=== PATIENT | female | born 1950 | race Caucasian/White ===

== ENCOUNTER 2020-02-23 18:21 | Emergency (ER) | payer OTHER, BC ==
[2020-02-23 18:33] VITALS: TEMP 97; BMI 32.5
--- NOTE | 2020-02-23 19:11 | PDOC ---
History of Present Illness - General Chief Complaint: Injury Stated Complaint: FALL/L/SIDE FACE INJURY/L/HAND/INJURY Time Seen by Provider: 02/23/20 18:31 - History of Present Illness Initial Comments: 02/23/20 18:58 69F with PMH/PSH of thyroid cancer s/p thyroidectomy on levothyroxine, asthma, Covid-19 in October, kidney stones, myomectomy, rhinoplasty presents to the ED concerned about head trauma after a fall. She states she tripped on a curb, braced her fall with her left wrist, and hit the front of her head on the concrete. She denies LOC, amnesia, vomitting, but states she felt "stunned" and now feels a bit nauseous. She is concerned she has a concussion and wants to know if she can sleep tonight. She also complains of pain on the front of her face under her left eye, as well as left wrist pain and swelling. She states she has a fall one year prior and had soft tissue injuries to her left wrist and knee. PMH/PSH: as above Meds/Allergies: see below ROS GENERAL/CONSTITUTIONAL: No fever or chills. No weakness. HEAD, EYES, EARS, NOSE AND THROAT: No change in vision. No ear pain or discharge. No sore throat. CARDIOVASCULAR: No chest pain or shortness of breath RESPIRATORY: No cough, wheezing, or hemoptysis. GASTROINTESTINAL: nausea. No vomiting, diarrhea or constipation. GENITOURINARY: No dysuria, frequency, or change in urination. MUSCULOSKELETAL: left wrist pain. no myalgias SKIN: sunburn on shoulders and upper extremities NEUROLOGIC: No headache, vertigo, loss of consciousness, or change in strength/sensation. ENDOCRINE: No increased thirst. No abnormal weight change HEMATOLOGIC/LYMPHATIC: No anemia, easy bleeding, or history of blood clots. ALLERGIC/IMMUNOLOGIC: No hives or skin allergy. PE GENERAL: Awake, alert, and fully oriented, in no acute distress HEAD: contusion on left maxillary process / left inferior orbit without crepitus or step-off. EYES: PERRLA, EOMI, sclera anicteric, conjunctiva clear ENT: Auricles normal inspection, hearing grossly normal, nares patent, oropharynx clear without exudates. Moist mucosa NECK: midline tenderness on c-spine LUNGS: No distress, speaks full sentences, clear to auscultation bilaterally HEART: Regular rate and rhythm, normal S1 and S2, no murmurs, rubs or gallops, peripheral pulses normal and equal bilaterally. ABDOMEN: Soft, nontender, normoactive bowel sounds. No guarding, no rebound. No masses EXTREMITIES : left wrist swelling, tender to palpation, limited active and passive range of motion, and reduced strength. Other extremities normal inspection, normal range of motion, no edema. No clubbing or cyanosis. NEUROLOGICAL: Cranial nerves II through XII grossly intact. Normal speech, no focal sensorimotor deficits SKIN: Warm, Dry, normal turgor, sunburn on shoulders and upper extremities Vital Signs Temp Pulse Resp BP Pulse Ox 97 F L 79 18 162/72 97 02/23/20 18:23 02/23/20 18:23 02/23/20 18:23 02/23/20 18:23 02/23/20 18:23 69F presenting after a fall complaining of left face and wrist pain. Physical exam notable for and also found to be tender on c-spine. Differntial includes cervical spine fracture, cranial bleed, facial bone fracture, left wrist fracture. -CT head, c-spine, and facial bones -plain films of left wrist and forearm -ice and brace on left wrist 02/23/20 19:19 Consulted tyrone, who read the left wrist plain films as showing an intra- articular radial styloid fracture and arthiritic changes of the trapezium. He recommended a volar or sugar tong splint. Will apply a sugar tong splint and sling. Patient states she has outside orthopedist who she will follow up with. 02/23/20 19:23 CT head: There is cerebral atrophy. 2 mm calcification versus colloid cyst at the anterior superior margin of the third ventricle. Very mild chronic microvascular ischemic changes are suggested. No acute intracranial hemorrhage or acute infarction. CT face: No acute maxillofacial fracture. No acute intraorbital injury. Mild bilateral maxillary, ethmoid, and sphenoid chronic sinus changes. CT cervical spine: Slight anterior subluxations at C4-C5 and C7-T1, likely due to degenerative changes.No acute cervical spine fracture or dislocation. 02/23/20 20:51 left wrist plain films official read by radiology cardiopulmonary specialist: Minimally displaced intra-articular fracture of distal radius. No obvious carpal bone fracture. Moderate degenerative changes in the lateral wrist. Sugar tong splint applied to the left wrist and patient discharged home with instructions to see her outside orthopedist tomorrow. Past History - Medical History Allergies/Adverse Reactions: Allergies Allergy/AdvReac Type Severity Reaction Status Date / Time ciprofloxacin [From Cipro] Allergy Verified 02/23/20 18:29 egg Allergy Verified 02/23/20 18:29 Penicillins Allergy Verified 02/23/20 18:29 shellfish derived Allergy Verified 02/23/20 18:29 Home Medications: Ambulatory Orders Bupropion HCl [Wellbutrin Sr] 150 mg PO DAILY 02/23/20 Escitalopram Oxalate [Lexapro -] 0 mg PO DAILY 02/23/20 Levothyroxine [Synthroid -] 250 mcg PO DAILY 02/23/20 Montelukast Sodium [Singulair] 10 mg PO DAILY 02/23/20 Asthma: Yes COPD: No Kidney Stones: Yes Thyroid Disease: Yes - Psycho-Social/Smoking History Smoking History: Never smoked - Substance Abuse Hx (Audit-C & DAST Scrn) How often the patient has a drink containing alcohol: Never Score: In Men: 4 or > Positive; In Women: 3 or > Positive: 0 Screen Result (Pos requires Nsg. Audit-10AR): Negative *Physical Exam - Vital Signs Last Vital Signs Temp Pulse Resp BP Pulse Ox 97 F L 79 18 162/72 97 02/23/20 18:23 02/23/20 18:23 02/23/20 18:23 02/23/20 18:23 02/23/20 18:23 Procedures - Splinting Splint Location: Left: Wrist Pre-Proc Neuro Vasc Exam: normal Hand-Made Type: fiberglass Splint Type: Yes: Sugar Tong Post-Proc Neuro Vasc Exam: normal Brien Bandage: 6" Sling: Yes Complications: No Post splint xray: No Good repositioning: Yes Discharge - Discharge Information Problems reviewed: Yes Clinical Impression/Diagnosis: Radial styloid fracture Qualifiers: Encounter type: initial encounter Fracture type: closed Fracture alignment: displaced Laterality: left Qualified Code(s): S52.512A - Displaced fracture of left radial styloid process, initial encounter for closed fracture Condition: Stable Disposition: HOME - Admission No - Follow up/Referral Referrals: Greg Owens [Primary Care Provider] - - Patient Discharge Instructions Patient Printed Discharge Instructions: How to Use a Sling, DI for Wrist Fracture, How to Prevent Falls Additional Instructions: You were seen in the ER after you fell and injuring your left wrist and head. We did a physical examination and ordered a CT scan of your head, cervical spine, and facial bones, as well as x-rays of your left wrist and forearm. The CTs did not show any acute pathology, but the x-rays showed "Minimally displaced intra- articular fracture of distal radius, no obvious carpal bone fracture, and moderate degenerative changes in the lateral wrist." We applied a temporary splint and sling to immobilize your wrist. You should follow up with your orthopedist as soon as possible, ideally tomorrow, for this fracture. You should also follow up with your primary doctor within one week for this fall. Please return to the ED if you experience loss of consciousness, vomiting, confusion, abnormal coordination, or any other reason. There were some incidental finding on CT that your should follow up on with your PCP: CT head: There is cerebral atrophy. 2 mm calcification versus colloid cyst at the anterior superior margin of the third ventricle. Very mild chronic microvascular ischemic changes are suggested. No acute intracranial hemorrhage or acute infarction. CT face: No acute maxillofacial fracture. No acute intraorbital injury. Mild bilateral maxillary, ethmoid, and sphenoid chronic sinus changes. CT cervical spine: Slight anterior subluxations at C4-C5 and C7-T1, likely due to degenerative changes.No acute cervical spine fracture or dislocation. - Post Discharge Activity
[2020-02-23 22:08] VITALS: BP 134/96; PULSE 74
--- NOTE | 2020-02-23 23:17 | PDOC ---
Documentation entered by Mariano Chilel SCRIBE, acting as scribe for Vinay Young DO. Vinay Young DO: This documentation has been prepared by the caesar, Mariano Chilel SCRIBE, under my direction and personally reviewed by me in its entirety. I confirm that the documentation accurately reflects all work, treatment, procedures, and medical decision making performed by me. Attending Attestation - Resident Resident Name: LonVirgil - ED Attending Attestation I have performed the following: I have examined & evaluated the patient, The case was reviewed & discussed with the resident, I agree w/resident's findings & plan, Exceptions are as noted - HPI HPI: 02/23/20 21:28 The patient is a 69 year old female trip and fall landed on left wrist, hit left side of her face. She is now complaining of left wrist pain and mild neck pain. Denies loc, midline pain. No paresthesias - Physicial Exam PE: 02/23/20 21:29 Tenderness at c3c4 Placed in c collar Swollen and tender distal radius Distal pulses intact no wrist drop - Medical Decision Making 02/23/20 21:29 A and P 69 year old female with fall will evaluate for wrist fracture Plan: Ct head, wrist, c spine Xray wrist and reassessment Reassessment Pt has a distal radial styloid fracture Discussed with ortho Will place patient in sugar tong splint Follow up with ortho Discharge - Discharge Information Problems reviewed: Yes Clinical Impression/Diagnosis: Radial styloid fracture Qualifiers: Encounter type: initial encounter Fracture type: closed Fracture alignment: displaced Laterality: left Qualified Code(s): S52.512A - Displaced fracture of left radial styloid process, initial encounter for closed fracture Condition: Stable Disposition: HOME - Follow up/Referral Referrals: Greg Owens [Primary Care Provider] - - Patient Discharge Instructions Patient Printed Discharge Instructions: How to Use a Sling, DI for Wrist Fracture, How to Prevent Falls Additional Instructions: You were seen in the ER after you fell and injuring your left wrist and head. We did a physical examination and ordered a CT scan of your head, cervical spine, and facial bones, as well as x-rays of your left wrist and forearm. The CTs did not show any acute pathology, but the x-rays showed "Minimally displaced intra- articular fracture of distal radius, no obvious carpal bone fracture, and moderate degenerative changes in the lateral wrist." We applied a temporary splint and sling to immobilize your wrist. You should follow up with your orthopedist as soon as possible, ideally tomorrow, for this fracture. You should also follow up with your primary doctor within one week for this fall. Please return to the ED if you experience loss of consciousness, vomiting, confusion, abnormal coordination, or any other reason. There were some incidental finding on CT that your should follow up on with your PCP: CT head: There is cerebral atrophy. 2 mm calcification versus colloid cyst at the anterior superior margin of the third ventricle. Very mild chronic microvascular ischemic changes are suggested. No acute intracranial hemorrhage or acute infarction. CT face: No acute maxillofacial fracture. No acute intraorbital injury. Mild bilateral maxillary, ethmoid, and sphenoid chronic sinus changes. CT cervical spine: Slight anterior subluxations at C4-C5 and C7-T1, likely due to degenerative changes.No acute cervical spine fracture or dislocation. - Post Discharge Activity
--- NOTE | 2020-02-24 08:10 | PDOC ---
*Physical Exam - Vital Signs Last Vital Signs Temp Pulse Resp BP Pulse Ox 97 F L 74 18 134/96 96 02/23/20 18:23 02/23/20 22:07 02/23/20 22:07 02/23/20 22:07 02/23/20 22:07 Medical Decision Making - Medical Decision Making 02/24/20 08:09 follow up from radiology, making us aware of fracture at distal left radius. per chart review, attending aware of fracture and case was discussed with ortho. Discharge - Discharge Information Problems reviewed: Yes Clinical Impression/Diagnosis: Radial styloid fracture Qualifiers: Encounter type: initial encounter Fracture type: closed Fracture alignment: displaced Laterality: left Qualified Code(s): S52.512A - Displaced fracture of left radial styloid process, initial encounter for closed fracture Condition: Stable Disposition: HOME - Follow up/Referral Referrals: Greg Owens [Primary Care Provider] - - Patient Discharge Instructions Patient Printed Discharge Instructions: How to Use a Sling, DI for Wrist Fracture, How to Prevent Falls Additional Instructions: You were seen in the ER after you fell and injuring your left wrist and head. We did a physical examination and ordered a CT scan of your head, cervical spine, and facial bones, as well as x-rays of your left wrist and forearm. The CTs did not show any acute pathology, but the x-rays showed "Minimally displaced intra- articular fracture of distal radius, no obvious carpal bone fracture, and moderate degenerative changes in the lateral wrist." We applied a temporary splint and sling to immobilize your wrist. You should follow up with your orthopedist as soon as possible, ideally tomorrow, for this fracture. You should also follow up with your primary doctor within one week for this fall. Please return to the ED if you experience loss of consciousness, vomiting, confusion, abnormal coordination, or any other reason. There were some incidental finding on CT that your should follow up on with your PCP: CT head: There is cerebral atrophy. 2 mm calcification versus colloid cyst at the anterior superior margin of the third ventricle. Very mild chronic microvascular ischemic changes are suggested. No acute intracranial hemorrhage or acute infarction. CT face: No acute maxillofacial fracture. No acute intraorbital injury. Mild bilateral maxillary, ethmoid, and sphenoid chronic sinus changes. CT cervical spine: Slight anterior subluxations at C4-C5 and C7-T1, likely due to degenerative changes.No acute cervical spine fracture or dislocation. - Post Discharge Activity
== END 2020-02-23 22:20 | disposition home or self-care (01) ==
LOC: JER 18:21
DX: S52.512A Displaced fracture of left radial styloid process, initial encounter for closed fracture (principal)
CPT/HCPCS: 70450-TC; 70486-TC; 72125-TC; 73090-TC-LT-FY; 73110-TC-LT-FY; 73130-TC-LT-FY; 99285-25